=== PATIENT | male | born 2000 | race Caucasian/White ===

== ENCOUNTER 2022-02-10 14:40 | Emergency (ER) | payer SELFPAY ==
[~2022-02-10] VITALS: Ht 177.8 cm; Wt 103.4 kg
[2022-02-10 15:19] VITALS: BP 114/84
[2022-02-10] MEDS ORDERED: LIDOCAINE 1% 500 MG/ 50 ML VIAL INJ ONE (17:45)
[2022-02-10] MEDS ORDERED: LIDOCAINE MPF 1% 0 ML ONE (17:54)
[2022-02-10] MEDS: IBUPROFEN 600 MG TAB PO ONE ×2 (17:57→18:04)
--- NOTE | 2022-02-10 18:04 | NUR ---
PT CALLED FOR MEDICATION NO RESPONSE
--- NOTE | 2022-02-10 19:00 | NUR ---
PATIENT ELOPED FROM FACILITY. DISCHARGE INSTRUCTIONS NOT GIVEN TO PATIENT. PA. VIRK NOTIFIED.
== END 2022-02-10 19:00 | disposition left against medical advice (07) ==
LOC: MED 14:40
DX: L60.0 Ingrowing nail (principal)
CPT/HCPCS: 99281; J2001

== ENCOUNTER 2023-03-25 16:30 | Emergency (ER) | payer OTHER ==
[~2023-03-25] VITALS: Ht 177.8 cm; Wt 90.7 kg
[2023-03-25 16:54] VITALS: BP 135/90; PULSE 97; RESP 15; TEMP 98.5; O2SAT 99
[2023-03-25] MEDS ORDERED: LIDOCAINE MPF 1% 10 MG/ML VIAL INJ ONE (17:10)
[2023-03-25] MEDS ORDERED: NEOMYCIN/POLYMYXIN/BACITRACIN 0.9 GM/1 PKT TP ONE ×2 (18:00→20:54)
[2023-03-25] MEDS ORDERED: LIDOCAINE MPF 1% 5 ML ONE (20:16)
[2023-03-25] MEDS ORDERED: IBUP-2218 PO (20:33)
[2023-03-25] MEDS ORDERED: CEPH-588 PO (20:33)
== END 2023-03-25 21:23 | disposition home or self-care (01) ==
LOC: MED 16:30
DX: L60.0 Ingrowing nail (principal); R03.0 Elevated blood-pressure reading, without diagnosis of hypertension; Z79.899 Other long term (current) drug therapy
CPT/HCPCS: 11730; 99284; J2001